=== PATIENT | male | born 1930 | race Caucasian/White ===

== ENCOUNTER 2017-08-15 16:40 | Emergency (ER) | payer MEDICARE, OTHER ==
[2014-09-06 13:17] VITALS: BMI 31.3
[~2017-08-15 16:40] MED LIST: FLOMAX0.4 MG PO; GLIPIZIDE10 MG PO; HYDROCODONE-APA1 TAB PO; LISINOPRIL2.5 MG; PROSCAR5 MG PO; ZOCOR10 MG PO
[2017-08-15 17:11] LABS: BASOPHILS 0.1 % (0-2); EOSINOPHILS 0.2 % (0-7); HEMATOCRIT 34.8 % (42.0-54.0); HEMOGLOBIN 11.4 g/dL (13.5-17.5); LYMPHOCYTES 12.9 % (15-50); MCH 30.1 pg (26.0-34.0); MCHC 32.8 g/dL (31.0-37.0); MCV 91.8 fL (80.0-100.0); MEAN PLATELET VOLUME 12.4 fL (7.4-10.4); MONOCYTES 13.8 % (2-11); PLATELET COUNT 117 10x3/uL (130-400); RBC 3.79 10x6/uL (4.20-6.10); RDW 14.2 % (11.5-14.5); WBC 9.6 10x3/uL (4.8-10.8)
[2017-08-15 18:00] LABS: ALBUMIN 3.7 g/dL (3.4-5.0); ALKALINE PHOSPHATASE 88 U/L (46-116); ALT (SGPT) 36 U/L (10-68); BILIRUBIN - TOTAL 1.39 mg/dL (0.2-1.3); CALC OSMOLALITY 284 mosm/kg (275-300); CALCIUM 8.8 mg/dL (8.5-10.1); CARBON DIOXIDE 25.3 mmol/L (21.0-32.0); CHLORIDE - SERUM 106 mmol/L (98-107); CREATININE - SERUM 0.8 mg/dL (0.6-1.3); POTASSIUM - SERUM 4.4 mmol/L (3.5-5.1); PROTEIN - SERUM 6.4 g/dL (6.4-8.2); SODIUM 139 mmol/L (136-145); UREA NITROGEN 18 mg/dL (7-18); eGFR NON AFRICAN AMERICAN > 90 mL/min (90-120)
[2017-08-15 18:03] LABS: CREATINE KINASE 151 UL (21-232); TROPONIN-I 0.018 ng/mL (0.000-0.060)
[2017-08-15 18:14] LABS: GLUCOSE 183 mg/dL (74-106)
== END 2017-08-15 22:05 | disposition other institution (70) ==
LOC: D.ER 16:40
PROVIDERS: Emergency Medicine; Nurse Practitioner Family
DX: S37.29XA Other injury of bladder, initial encounter (principal); V43.52XA Car driver injured in collision with other type car in traffic accident, initial encounter; Y93.89 Activity, other specified; Y92.410 Unspecified street and highway as the place of occurrence of the external cause; I60.9 Nontraumatic subarachnoid hemorrhage, unspecified; S37.039A Laceration of unspecified kidney, unspecified degree, initial encounter; S32.592A Other specified fracture of left pubis, initial encounter for closed fracture; E11.9 Type 2 diabetes mellitus without complications; R00.0 Tachycardia, unspecified; I45.10 Unspecified right bundle-branch block